=== PATIENT | female | born 1990 | race Hispanic/Latino ===

== ENCOUNTER 2017-12-06 13:57 | Outpatient (CLI) | payer OTHER ==
--- NOTE | 2017-12-06 15:49 | ULT ---
OB ULTRASOUND 12/06/17 CLINICAL HISTORY: Evaluation of anatomy, size and dates. FINDINGS: There is a live intrauterine gestation which by sonographic evaluation corresponds to an ultrasound a ge of 23 weeks, 4 days with biparietal diameter corresponding to 23 weeks, 6 days. Head circumference 23 weeks, 0 days, abdominal circumference 24 weeks, 0 days, and femur length of 24 weeks, 2 days. Es timated date of delivery by ultrasound is March 31, 2018. Estimated weight is 650 grams placing the fetus at the 70th percentile by Hadlock criteria. Evaluation of the anatomy including the c ranium, spine, four chamber heart, gastric bubble, kidneys, cord insertion site, and three vessel cor d reveal no significant abnormalities. The facial structures are partially obscured. card iac activity is documented at 144 beats per minute. The fetus is in a cephalic lie and the placenta i s located primarily in an anterior location. GIOVANNY measures 17.2 cm. The ovaries, uterus and fallopian tubes are not well assessed. Cervix is not we ll delineated. IMPRESSION: Live intrauterine gestation as discussed above. As necessary, imaging followup may be obtained. POS: JULI
== END 2017-12-06 13:58 | disposition home or self-care (01) ==
LOC: ULT 13:57
PROVIDERS: ATTEND Family Medicine
DX: Z34.92 Encounter for supervision of normal pregnancy, unspecified, second trimester (principal); Z3A.23 23 weeks gestation of pregnancy
CPT/HCPCS: 76805

== ENCOUNTER 2018-03-25 22:00 | Inpatient (IN) | payer OTHER ==
--- NOTE | 2018-03-26 02:59 | HP ---
HISTORY OF PRESENT ILLNESS: This is a 27-year-old Latin-Argent[place] female at 39 weeks gestation with an EDC of 04/01/2018 who is being admitted for an elective induction. The patient lives in [facility] and has a history of a rapid delivery. Her course has been uncomplicated. She has bee n having occasional contractions. PAST MEDICAL HISTORY: Unremarkable. ALLERGIES: None. PAST SURGICAL HISTORY: Spontaneous vaginal delivery x1. FAMILY HISTORY: Mother with diabetes. SOCIAL HISTORY: She is . She has one son. 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 She is a nonsmoker, does not drink. REVIEW OF SYSTEMS: As above. PHYSICAL EXAMINATION: VITAL SIGNS: Stable, afebrile. LUNGS: Clear. HEART: Clear. LUNGS: Clear. ABDOMEN: Gravid. EXTREMITIES: With no edema. LABORATORY AND X-RAY FINDINGS: She is GBS negative, HIV negative, 3-hour GCT negative. Hematocrit 3 3.1. Pap is ASCUS. GC chlamydia negative. RPR negative. TSH normal. HIV negative, hepatitis B ne gative, positive blood type, rubella immune. ASSESSMENT: 1. A 39-week intrauterine . 2. History of , patient lives 1 hour away. PLAN: 1. Routine L&D orders. 2. Routine anesthesia orders. 3. Elective Cytotec/Pitocin induction.
[2018-03-26] MEDS ORDERED: Acetaminophen/Codeine 30-300mg Tablet PO PRN (09:35)
[2018-03-26] MEDS ORDERED: HYDROcodone/Acetaminophen 5/325 mg Tablet PO PRN (09:35)
[2018-03-26] MEDS ORDERED: Acetaminophen 500 MG TAB PO PRN (09:35)
[2018-03-26] MEDS ORDERED: LR / Pitocin 40 units/1000 ml 1,000 ML IV PRN (09:35)
[2018-03-26] MEDS ORDERED: LR 500 ML/Oxytocin 10 units 500 ML IV SCH (09:35)
[2018-03-26] MEDS ORDERED: Ondansetron HCl/PF 4 MG/2 ML Vial IVP PRN (09:35)
[2018-03-26] MEDS ORDERED: Zolpidem Tartrate 5 MG TAB PO PRN (09:35)
[2018-03-26] MEDS ORDERED: Ibuprofen 800 MG TAB PO PRN (09:35)
[2018-03-26] MEDS ORDERED: Lidocaine 1% (PF) 30 ML VIAL SC PRN (09:35)
[2018-03-26] MEDS ORDERED: Promethazine HCl 25 MG/ML VIAL IM PRN (09:35)
[2018-03-26 09:42] VITALS: BMI 32.5
[2018-03-26] MEDS: Lactated Ringer's 1,000 ML IV SCH ×3 (10:00→19:20)
[2018-03-26 10:25] LABS: Hemoglobin 12.2 g/dL (12.0-16.0); Mean Corpuscular HGB CONC 34.4 g/dL (32.0-36.0); Mean Corpuscular Hemoglobin 28.5 pg (27.0-31.0); Mean Corpuscular Volume 82.7 fl (81.0-99.0); Mean Platelet Volume 7.5 fL (7.4-10.4); Platelet Count 295 thou/uL (130-400); RBC Distribution Width 16.3 % (11.5-14.5); Red Blood Cell (RBC) Count 4.28 mill/uL (4.20-5.40); White Blood Cell (WBC) Count 7.4 thou/uL (4.8-10.8)
[2018-03-26] MEDS: Misoprostol 100 MCG TAB VAG SCH ×4 (10:41→21:35)
[2018-03-26 10:55] LABS: HBSAg Index 0.72 S/CO (0-0.99); Hep B Surf Ag Non-Reactive S/CO (NonReactive); Syphilis Antibody Nonreactive (Nonreactive); Syphilis Antibody Index 0.08 S/CO (<1.00 Non-Reactive)
[2018-03-26] MEDS ORDERED: Bupivacaine 0.5% 20 ML, fentaNYL Citrate/PF 400 MCG in Sodium Chloride 0.9% 72 ML EPIDURAL SCH (18:45)
[2018-03-26] MEDS ORDERED: DISCONTINUE ALL PREVIOUS NARCOTICS FS SCH (18:45)
[2018-03-26] MEDS ORDERED: Lactated Ringer's 500 ML IV PRN (19:50)
[2018-03-26] MEDS ORDERED: ePHEDrine/0.9% NaCl/PF SYRINGE 50 mg/10 ml SLOW IVP PRN (19:50)
[2018-03-26] MEDS ORDERED: Naloxone HCl 0.4 mg/ml Vial IVP PRN (19:50)
[2018-03-26] MEDS ORDERED: Hydrocerin (Eucerin) Cream 120 gm Jar TOP PRN (19:50)
[2018-03-26] MEDS ORDERED: Communication Order-Pharmacy FS SCH (20:00)
[2018-03-26] MEDS ORDERED: Fentanyl 4mcg/Marcaine 0.1% Cassette 100 ML EPIDURAL SCH (20:00)
[2018-03-26] MEDS: NS / Oxytocin 40 units/1000ml 1,000 ML IV PRN ×2 (22:51→23:55)
[2018-03-26] MEDS ORDERED: Misoprostol 200 MCG TAB ONE (22:54)
--- NOTE | 2018-03-27 00:57 | OP ---
PREOPERATIVE DIAGNOSIS: Term . POSTOPERATIVE DIAGNOSIS: Term . PROCEDURE: Spontaneous vaginal delivery with repair of a left labial tear. SURGEON: Serafin Huynh MD ANESTHESIA: Epidural. PROCEDURE IN DETAIL: This 27-year-old Latin-Thai female taken to delivery room, complete a nd pushing. Prepped and draped sterilely. Delivered a baby boy with Apgars 8 at 1 minute, 9 at 5 mi nutes. Baby did breathe and cry vigorously upon delivery. Delivered placenta, 3-vessel intact. Rep aired a 3-cm left labial laceration with 3-0 chromic. Estimated blood loss was 350 mL. Mother and b avila did well.
[2018-03-27] MEDS ORDERED: HYDROcodone/Acetaminophen 5/325 mg Tablet PO PRN (01:39)
[2018-03-27] MEDS ORDERED: Bisacodyl 10 MG SUPP PR PRN (01:39)
[2018-03-27] MEDS ORDERED: NS / Oxytocin 40 units/1000ml 1,000 ML IV SCH (01:39)
[2018-03-27] MEDS ORDERED: Benzocaine/Menthol 20-0.5% 60 ML CAN TOP PRN (01:39)
[2018-03-27] MEDS ORDERED: Lanolin Ointment 7 GM TUBE TOP PRN (01:39)
[2018-03-27] MEDS ORDERED: Ondansetron HCl/PF 4 MG/2 ML Vial IVP PRN (01:39)
[2018-03-27] MEDS ORDERED: Milk Of Magnesia 30 ML UDCUP PO PRN (01:39)
[2018-03-27] MEDS: Misoprostol 100 MCG TAB VAG SCH (01:47)
[2018-03-27] MEDS: Ibuprofen 800 MG TAB PO SCH ×3 (04:30→21:16)
[2018-03-27 06:07] LABS: Hemoglobin 10.6 g/dL (12.0-16.0); Mean Corpuscular HGB CONC 34.2 g/dL (32.0-36.0); Mean Platelet Volume 7.3 fL (7.4-10.4); Platelet Count 246 thou/uL (130-400); RBC Distribution Width 16.2 % (11.5-14.5); Red Blood Cell (RBC) Count 3.77 mill/uL (4.20-5.40); White Blood Cell (WBC) Count 12.1 thou/uL (4.8-10.8)
[2018-03-27] MEDS: Ferrous Sulfate 325 MG TAB PO SCH ×2 (07:52→17:08)
[2018-03-27] MEDS ORDERED: Adacel (T-DAP) 0.5 ML VIAL IM ONE (09:00)
[2018-03-27] MEDS: Docusate Calcium (SURFAK) 240 MG CAP PO SCH ×2 (09:34→21:16)
[2018-03-27] MEDS: Prenatal Vitamin 1 TAB PO SCH (09:34)
[2018-03-28] MEDS: Ibuprofen 800 MG TAB PO SCH (06:05)
[2018-03-28] MEDS: Ferrous Sulfate 325 MG TAB PO SCH (07:21)
[2018-03-28 08:38] VITALS: BP 120/72; TEMP 98
--- NOTE | 2018-03-28 08:49 | PDOC.PP ---
Post Progress Note Post Day #: 2 Subjective: No c/o Doing well PO intake tolerated: yes Flatus: yes Ambulation: yes Vital Signs (12 hours) Temp Pulse Resp BP 03/28/18 08:10 98.0 F 68 18 120/72 Weight Weight 172 lb - Physical Examination General: NAD Cardiovascular: no m/r/g, RRR Respiratory: clear to auscultation bilaterally, non-labored breathing Abdominal: + bowel sounds, lochia, no distention, appropriately TTP Psychiatric: A&Ox3, normal affect Result Diagrams: 03/27/18 05:14 Additional Labs: Post Labs Blood Type O POSITIVE 03/26/18 10:17 Hep Bs Antigen Non-Reactive S/CO (NonReactive) 03/26/18 10:17 (1) Vaginal delivery Code(s): O80 - ENCOUNTER FOR FULL-TERM UNCOMPLICATED DELIVERY Status: Acute - Assessment/Plan PPD #2 Doing well No concerns D/C home F/u in 2 weeks with Mani Huynh
[2018-03-28] MEDS: Prenatal Vitamin 1 TAB PO SCH (09:10)
[2018-03-28] MEDS: Docusate Calcium (SURFAK) 240 MG CAP PO SCH (09:10)
== END 2018-03-28 11:50 | disposition home or self-care (01) | DRG 775 ==
LOC: L&D 03-26 09:20 → 3SW 03-27 01:17
PROVIDERS: ADMIT Family Medicine; ATTEND Family Medicine
PROC: 10E0XZZ Delivery of Products of Conception, External Approach (ICD-10-PCS; principal; 2018-03-27)
PROC: 0UQMXZZ Repair Vulva, External Approach (ICD-10-PCS; 2018-03-27)
PROC: 3E0P7VZ Introduction of Hormone into Female Reproductive, Via Natural or Artificial Opening (ICD-10-PCS; 2018-03-27)
DX: O70.0 First degree perineal laceration during delivery (principal); Z3A.39 39 weeks gestation of pregnancy; Z37.0 Single live birth
CPT/HCPCS: 36415; 51702; 76815; 85027; 86780; 86850; 86900; 86901; 87340; J3010; J3490; J7050; J7120